=== PATIENT | female | born 1985 | race Two or more races ===

== ENCOUNTER 2021-11-28 14:51 | Outpatient (CLI) | payer BC, SELFPAY ==
--- NOTE | 2021-11-28 15:00 | CRLHL7_ITS ---
For Patients: As a result of the Cures Act, medical imaging exams and procedure reports are released immediately into your electronic medical record. You may view this report before your referring provider. If you have questions, please contact your health care provider. INDICATION: First trimester scan, establish dates. COMPARISON: None. TECHNIQUE: Real-time spence-scale imaging of the pelvis was performed. FINDINGS: Sonographic imaging demonstrates a single living intrauterine gestation. The embryo demonstrates a regular cardiac rate measuring 163 beats per minute. The embryo`s crown-rump length measurement of 1.4 cm corresponds to a gestational age of 7 weeks 5 days with a sonographic due date of 07/12/2022. There is a normal-appearing yolk sac. There are no gross abnormalities noted within the embryo at this early state of development. The gestational sac has a normal appearance. There is no evidence of a perigestational hemorrhage. The amount of fluid within the sac appears appropriate for gestational age. The cervix is closed. The myometrium appears normal. The ovaries are of normal size. Corpus luteal cyst right ovary. There are no suspicious fluid collections noted in the cul-de-sac. IMPRESSION: Normal first trimester OB ultrasound exam. Gestational age calculated at 7 weeks 5 days with a sonographic due date of 07/12/2022. Dictated by Donald Alatorre MD @ 11/28/2021 4:02:07 PM (Electronically Signed)
== END 2021-11-28 14:52 | disposition home or self-care (01) ==
PROVIDERS: Visit Provider Physician Assistant
DX: Z34.91 Encounter for supervision of normal pregnancy, unspecified, first trimester (principal); Z3A.01 Less than 8 weeks gestation of pregnancy
CPT/HCPCS: 76817

== ENCOUNTER 2022-07-09 16:51 | Inpatient (IN) | payer BC, SELFPAY ==
[2022-07-09 17:02] VITALS: PULSE 83; O2SAT 99
[2022-07-09 17:03] VITALS: BP 124/86; PULSE 97; TEMP 36.6
[2022-07-09 17:20] VITALS: BMI 33.3
[2022-07-09] MEDS: miSOPROStoL 25 MCG/0.25 TABLET PO ×3 (17:49→23:45)
[2022-07-09 18:46] LABS: SARS Antigen* Negative (Negative)
[2022-07-09 19:02] LABS: Basophils Percent Auto 0.4 % (0.0-3.0); Eosinophils Percent Auto 0.6 % (0.0-7.0); Hemoglobin* 11.7 gm/dL (12.0-16.0); Immature Granulocytes Pct Auto 0.2 %; Lymphocytes Percent Auto 21.9 % (20-44); Mean Corpuscular HGB Conc 33 gm/dL (32-36); Mean Corpuscular Hemoglobin 27 pg (26-34); Mean Corpuscular Volume 82 fL (80-100); Neutrophils Percent Auto 70.9 % (42.0-72.0); Platelet Count* 240 K/uL (140-440); RDW Coefficient of Variation % 14.4 % (11.5-15.5); Red Blood Count 4.41 m/uL (4.00-5.20); White Blood Count* 11.26 K/uL (4.50-11.00)
[2022-07-09 19:07] LABS: Slide Review Reflex No
--- NOTE | 2022-07-09 19:20 | PM.OBHPLI ---
OB - H&P: HPI Labor/Induction History of Present Illness Date Seen: 07/09/22 Chief Complaint: The patient is a 36 year old 2 para 1001 at 40 weeks gestation by LMP and confirmed with 7w US, who presents for IOL for AMA. has been uncomplicated other than maternal covid infection at 30 weeks. Symptoms were mild and she was started on ASA 81 mg at that time. Baby has been active. No contractions or LOF. No swelling, headaches, abdominal pain. Chief complaint: Maternity : 2 Para: 1 Indications for induction: other (AMA) History of Present Dating criteria: based on LMP care: good care Ultrasounds: normal 1st trimester US, normal mid trimester US and other (growth US at 36 weeks 2814g (79%)) complications comment: covid in . on 81 mg ASA. Medical complications: other (meralgia paresthetica ) Labs Blood type: A (+) positive Rubella: immune RPR/VDLR: nonreactive GBS status: negative HBsAG: negative Review of Systems Status of ROS: Reports: 6 or more systems reviewed and unremarkable except as noted in History and below Meds Home Medications and Allergies Home Medications Medication Instructions Recorded Confirmed Type No Known Home Medications 07/09/22 07/09/22 History Allergies Allergy/AdvReac Type Severity Reaction Status Date / Time No Known Drug Allergies Allergy Verified 07/09/22 17:04 OB - H&P: Exam Physical Exam: Vital signs: Temp Pulse BP Pulse Ox 97.9 F 97 124/86 99 07/09/22 17:03 07/09/22 17:03 07/09/22 17:03 07/09/22 17:02 Constitutional: Constitutional: no acute distress Routine HEENT Exam: Head: Present atraumatic and normal inspection Eye: Present EOMI and normal appearance ENT: Present mucous membranes moist Routine Neck Exam: Neck: Present full ROM Routine Respiratory Exam: Respiratory: Present CTA bilaterally Routine Cardiovascular Exam: Cardiovascular: RRR Comments: no murmur Detailed Labor and Delivery Exam: Dilation (cm): 0 Effacement (%): 0 Cervix position: posterior Consistency: firm Contraction frequency (min): 5 Contraction intensity: Mild Fetus (Single): Station: -3 Amniotic Membrane Status: intact Heart Rate Baseline: 125 Monitor Accelerations: Present Monitor Decelerations: None Stone Derrickman And Rigger Variability: Moderate (6-25) Routine Skin Exam: Present intact and normal turgor Routine Neurological Exam: Present alert, oriented X3 and CN II-XII intact Routine Psychiatric Exam: Present normal affect OB - Results Labs Labs: Short CBC 07/09/22 Range/Units 18:53 WBC 11.26 H (4.50-11.00) K/uL Hgb 11.7 L (12.0-16.0) gm/dL Hct 36.0 (33.0-51.0) % Plt Count 240 (140-440) K/uL OB - Problem Based A/P Additional Plan (1) Term : Status: Acute (2) AMA (advanced maternal age) multigravida 35+: Status: Acute Delivery/Labor/Induction Plan Plan: induction Induction method: per misoprostol protocol
[2022-07-10] MEDS: miSOPROStoL 25 MCG/0.25 TABLET PO ×2 (02:46→06:13)
[2022-07-10 07:14] VITALS: BP 140/87; PULSE 67; TEMP 36.6
--- NOTE | 2022-07-10 11:29 | P.OBPN_ITS ---
Subjective Date Seen: 07/10/22 Narrative: Britt is a 36 yo at 40+1 weeks here for IOL for AMA. She recieved 5 doses of PO cytotec since admission. Contractions have been stronger, but minimal cervical change. Objective Vital Signs: Last Vital Signs Temp 97.8 F 07/10/22 07:14 Pulse 67 07/10/22 07:14 BP 140/87 H 07/10/22 07:14 Pulse Ox 99 07/09/22 17:02 Pelvic Exam Dilation (cm): 1 Station: -3 Contractions Monitor mode: External Contraction Frequency: 3-4 Contraction pattern: Irregular Contraction intensity: Moderate Assessment Assessment: induction ongoing Station: -3 Status: Category l Heart Rate Baseline: 135 [facility] Variability: Moderate (6-25) Monitor Accelerations: Present Monitor Decelerations: None Plan Plan: Discussed options for ongoing induction with minimal cervical change, pitocin and AROM are not indicated. Given difficulty reaching cervix which is still quite posterior, recommend cervidil for cervical ripening and then reassessing at that point for AROM vs pitocin.
[2022-07-10] MEDS: DINOPROSTONE 10 MG VAGINAL INSERT VAGINAL (11:38)
[2022-07-10 11:43] VITALS: BP 148/82; PULSE 73
[2022-07-10 15:54] VITALS: BP 134/77; PULSE 83; TEMP 36.5
[2022-07-10] MEDS: hydrOXYzine pamoate 25 MG CAPSULE 100 MG PO ×2 (16:47→23:56)
[2022-07-10] MEDS: MORPHINE 10 MG/ML inj IM ×2 (16:47→23:56)
[2022-07-10] MEDS: ONDANSETRON ODT 4 MG TAB PO ×2 (18:05→23:40)
[2022-07-10 18:42] VITALS: BP 119/72; PULSE 83; TEMP 36.5
[2022-07-10 19:12] VITALS: BP 122/70; PULSE 79; RESP 16; TEMP 36.8
[2022-07-10 23:33] VITALS: BP 126/74; PULSE 75; RESP 18; TEMP 37
[2022-07-11] VITALS (12 sets, daily range): BP systolic 116–139; BP diastolic 66–89; PULSE 68–97; RESP 16–18; TEMP 36.6–36.9; O2SAT 98–100
--- NOTE | 2022-07-11 07:56 | P.OBPN_ITS ---
Subjective Date Seen: 07/11/22 Narrative: at 40+1 started IOL on 07/09/22 evening. Has had oral cytotec x5 followed by cervidil. Cervix remained unfavorable at midnight when the cervidil was removed, so she was allowed to rest overnight. She is comfortable now, not feeling contractions. Has been nauseated and vomiting since her dose of morphine. Is due for PO zofran and recommend she try breakfast. Objective Vital Signs: Last Vital Signs Temp 98.2 F 07/11/22 06:21 Pulse 71 07/11/22 06:21 Resp 18 07/11/22 06:21 BP 130/85 07/11/22 06:21 Pulse Ox 99 07/09/22 17:02 Pelvic Exam Dilation (cm): 2 Effacement (%): 40 Station: -3 Comments: medium, posterior, Henderson score 3 Contractions Monitor mode: External Contraction pattern: Irregular Contraction intensity: Mild Assessment Assessment: induction ongoing Station: -3 Status: Category l Heart Rate Baseline: 135 Installation And Repair Technician Variability: Moderate (6-25) Monitor Accelerations: Present Monitor Decelerations: None Plan Plan: Discussed options with patient including d/c to home to reinitiate induction later tonight or later this week vs vaginal cytotec with plan to hopefully place a cook catheter overnight. Patient would like to continue induction. Will plan cytotec PV.
[2022-07-11] MEDS: ONDANSETRON ODT 4 MG TAB PO (08:07)
[2022-07-11] MEDS: miSOPROStoL 25 MCG/0.25 TABLET VAGINAL ×4 (08:21→17:13)
[2022-07-11] MEDS: LACTATED RINGERS 1000 ML 1,000 ML 500 ML IV ×2 (09:46→23:34)
[2022-07-11] MEDS: LACTATED RINGERS 1000 ML 1,000 ML 125 ML IV (14:20)
[2022-07-11 15:58] LABS: Basophils Percent Auto 0.2 % (0.0-3.0); Eosinophils Percent Auto 0.1 % (0.0-7.0); Hematocrit 36.8 % (33.0-51.0); Hemoglobin* 11.8 gm/dL (12.0-16.0); Immature Granulocytes Pct Auto 0.2 %; Lymphocytes Percent Auto 11.1 % (20-44); Mean Corpuscular HGB Conc 32 gm/dL (32-36); Mean Corpuscular Hemoglobin 26 pg (26-34); Mean Corpuscular Volume 82 fL (80-100); Monocytes Percent Auto 5.8 % (0.0-11.0); Neutrophils Percent Auto 82.6 % (42.0-72.0); Platelet Count* 351 K/uL (140-440); RDW Coefficient of Variation % 15.3 % (11.5-15.5); Red Blood Count 4.48 m/uL (4.00-5.20); White Blood Count* 12.56 K/uL (4.50-11.00)
[2022-07-11 16:00] LABS: Slide Review Reflex No
[2022-07-11] MEDS: LACTATED RINGERS 1000 ML 1,000 ML 999 ML IV ×2 (19:11→20:15)
--- NOTE | 2022-07-11 19:52 | P.OBPN_ITS ---
Subjective Date Seen: 07/11/22 Narrative: Britt is a 36 yo at 40+2 weeks here for IOL for AMA. She has made minimal cervical change after 4 doses cytotec PV, however cervix is more mid position and cook catheter was able to be placed with use of nitrous oxide for analgesia. 60 mL was placed in both intrauterine and intravaginal balloons. Patient is feeling occasional mild contractions. No LOF. No swelling. Objective Vital Signs: Last Vital Signs Temp 98.3 F 07/11/22 18:35 Pulse 73 07/11/22 19:46 Resp 16 07/11/22 18:35 BP 139/89 07/11/22 19:46 Pulse Ox 100 07/11/22 18:46 Pelvic Exam Dilation (cm): 2 Effacement (%): 40 Station: -3 Contractions Monitor mode: External Contraction pattern: Irregular Contraction intensity: Mild Assessment Assessment: induction ongoing Station: -3 Status: Category l Heart Rate Baseline: 150 Hazardous Materials Driver Variability: Moderate (6-25) Monitor Accelerations: Present Monitor Decelerations: None Plan Plan: Cook catheter overnight. Low dose pitocin protocol in early AM. Plan for pitocin induction vs AROM in morning.
[2022-07-11] MEDS: hydrOXYzine pamoate 25 MG CAPSULE 100 MG PO (22:05)
[2022-07-11] MEDS: MORPHINE 10 MG/ML inj IM (22:06)
[2022-07-11] MEDS: ONDANSETRON 2 MG/ML inj 4 MG IV (22:10)
[2022-07-11] MEDS: LACTATED RINGERS 1000 ML 1,000 ML 1200 ML IV (22:40)
[2022-07-12] VITALS (71 sets, daily range): BP systolic 103–197; BP diastolic 51–94; PULSE 59–113; RESP 16–18; TEMP 36.6–37.6; O2SAT 87–99
[2022-07-12] MEDS: LACTATED RINGERS 1000 ML 1,000 ML 500 ML IV ×4 (01:29→06:56)
[2022-07-12] MEDS: OXYTOCIN 30 unit/500 ML in NS 30 UNIT/500 ML BAG IVPB (02:05)
[2022-07-12] MEDS: fentaNYL 100 MCG/2 ML inj IVP ×3 (05:44→07:14)
--- NOTE | 2022-07-12 07:32 | P.OBPN_ITS ---
Subjective Date Seen: 07/12/22 Narrative: Britt is a at 40+3 here for IOL for AMA. Last evening had a cook placed at around 1945. About an hour later, had bleeding with passage of an 85 g clot. She had no increased pain, FHTs reassuring and we continued observation with resolution of bleeding. Cook removed around 0600 and 10 minutes later patient had SROM of clear fluid. Her pain increased significantly at that time and fentanyl x3 doses was not sufficient to relieve pain. She is now getting an epidural. Objective Vital Signs: Last Vital Signs Temp 98.3 F 07/12/22 06:11 Pulse 94 07/12/22 07:31 Resp 16 07/12/22 06:11 BP 143/70 H 07/12/22 07:31 Pulse Ox 89 07/12/22 07:29 Pelvic Exam Dilation (cm): 2 Effacement (%): 40 Station: -3 Contractions Monitor mode: External Contraction Frequency: 2 minutes Contraction pattern: Irregular Contraction intensity: Mild Pitocin Rate (mU/min): 4 Assessment Assessment: active labor Station: -3 Amniotic Membrane Status: SROM Status: Category l Heart Rate Baseline: 140 Food Service Team Member Variability: Moderate (6-25) Monitor Accelerations: Present Monitor Decelerations: None Plan Plan: Continue pitocin per protocol Anticipate .
[2022-07-12] MEDS: LIDOCAINE 2% (PF) 5 ML VIAL EPIDURAL (07:35)
[2022-07-12] MEDS: ROPIVACAINE 0.2% 100 ml 100 ML 10 MG EPIDURAL (07:35)
--- NOTE | 2022-07-12 07:48 | PM.ANBPRC ---
[facility] Smoking Status: Never smoker Meds Home Medications and Allergies Home Medications Medication Instructions Recorded Confirmed Type No Known Home Medications 07/09/22 07/09/22 History Allergies Allergy/AdvReac Type Severity Reaction Status Date / Time No Known Drug Allergies Allergy Verified 07/09/22 17:04 Results Labs Labs: Laboratory Results - last 24 hr 07/11/22 09:40 WBC 12.56 H RBC 4.48 Hgb 11.8 L Hct 36.8 MCV 82 MCH 26 MCHC 32 RDW Coeff of [place] 15.3 Plt Count 351 Neut % (Auto) 82.6 H Lymph % (Auto) 11.1 L [place] % (Auto) 5.8 Eos % (Auto) 0.1 Baso % (Auto) 0.2 Neut # (Auto) 10.40 H Lymph # (Auto) 1.40 [place] # (Auto) 0.70 Eos # (Auto) 0.00 Baso # (Auto) 0.00 Vital Signs Vital Signs: Last Vital Signs Temp 98.3 F 07/12/22 06:11 Pulse 81 07/12/22 07:47 Resp 16 07/12/22 06:11 BP 115/65 07/12/22 07:47 Pulse Ox 99 07/12/22 07:42 Weight: 80.104 kg Height: 154.94 cm Anesthesia Procedures Epidural Insertion Patient Location: OB Reason for Block: primary anesthetic Patient Position: sitting Performed By: Arvind Ordaz Preanesthetic Checklist: IV checked, risks and benefits discussed, surgical consent, monitors and equipment checked, pre-op evaluation, timeout performed and anesthesia consent Prep: chlorhexidine gluconate Monitoring: blood pressure monitoring, air sampling and monitoring, continuous pulse oximetry and heart rate Approach: midline Vertebral Space: lumbar (1-5) Needle Type: Tuohy needle Injection Technique: continuous catheter (catheter) Needle gauge: 17 Needle Length (cm): 10 cm Needle Insertion Depth (cm): 5 Catheter Gauge: 19 Catheter Type: multi-orifice Catheter at skin depth (cm): 10 Test Dose Result: negative and lidocaine 1.5% with epinephrine 1 to 200,000
--- NOTE | 2022-07-12 07:49 | PM.ANBPRC ---
[facility] PFS Social History Smoking Status: Never smoker Meds Home Medications and Allergies Home Medications Medication Instructions Recorded Confirmed Type No Known Home Medications 07/09/22 07/09/22 History Allergies Allergy/AdvReac Type Severity Reaction Status Date / Time No Known Drug Allergies Allergy Verified 07/09/22 17:04 Results Labs Labs: Laboratory Results - last 24 hr 07/11/22 09:40 WBC 12.56 H RBC 4.48 Hgb 11.8 L Hct 36.8 MCV 82 MCH 26 MCHC 32 RDW Coeff of [place] 15.3 Plt Count 351 Neut % (Auto) 82.6 H Lymph % (Auto) 11.1 L [place] % (Auto) 5.8 Eos % (Auto) 0.1 Baso % (Auto) 0.2 Neut # (Auto) 10.40 H Lymph # (Auto) 1.40 [place] # (Auto) 0.70 Eos # (Auto) 0.00 Baso # (Auto) 0.00 Vital Signs Vital Signs: Last Vital Signs Temp 98.3 F 07/12/22 06:11 Pulse 81 07/12/22 07:47 Resp 16 07/12/22 06:11 BP 115/65 07/12/22 07:47 Pulse Ox 99 07/12/22 07:47 Weight: 80.104 kg Height: 154.94 cm Anesthesia Procedures Epidural Insertion Patient Location: OB Start Time: 07:15 Stop Time: 07:45 Start Date: 07/12/22 Stop Date: 07/12/22 Reason for Block: procedure for pain Patient Position: sitting Performed By: Arvind Ordaz Preanesthetic Checklist: IV checked, site marked, risks and benefits discussed, monitors and equipment checked, pre-op evaluation, timeout performed and anesthesia consent Prep: patient draped Monitoring: blood pressure monitoring, continuous pulse oximetry and heart rate Approach: midline Vertebral Space: lumbar (1-5) Epidural Technique: SUMIT saline Needle Type: Tuohy needle Injection Technique: continuous catheter Needle gauge: 17 Needle Insertion Depth (cm): 5 Catheter Gauge: 19 Catheter Type: multi-orifice Catheter at skin depth (cm): 10
[2022-07-12] MEDS: PHENYLEPHRINE 100 MCG/ML SYRINGE IVP (08:58)
--- NOTE | 2022-07-12 12:23 | P.OBPN_ITS ---
Subjective Date Seen: 07/12/22 Narrative: Britt is a at40+3 who was admited for IOL for AMA. This morning had SROM and went in to active labor around 0615 and was complete around 1000. She has been pushing for 2.5 hours, but not effectively and not feeling pressure or urge to push despite turning down epidural rate. She is exhausted and is requesting rest. Objective Vital Signs: Last Vital Signs Temp 98.4 F 07/12/22 12:11 Pulse 73 07/12/22 12:20 Resp 16 07/12/22 06:11 BP 109/54 L 07/12/22 12:20 Pulse Ox 98 07/12/22 08:27 Pelvic Exam Dilation (cm): 10 Effacement (%): 100 Station: 0 Contractions Monitor mode: External Contraction pattern: Irregular Contraction intensity: Mild Pitocin Rate (mU/min): 4 Assessment Assessment: active labor Station: -3 Amniotic Membrane Status: SROM Status: Category l Heart Rate Baseline: 155 Real Estate Leasing Manager Variability: Minimal (3-5) Monitor Accelerations: Present Monitor Decelerations: Variable Plan Plan: Epidural rate turned down again in hopes that mom has more urge to push and more effective pushing. If no progress made, will need to consult Seed Core Operator to discuss .
[2022-07-12] MEDS: LACTATED RINGERS 1000 ML 1,000 ML 125 ML IV (13:44)
[2022-07-12] MEDS: CEFAZOLIN 2 GM INJ IVP (15:03)
--- NOTE | 2022-07-12 15:28 | W.PM.VAGDEL1 ---
Procedure Procedure Done: Global Events: AMA and Covid Infection in Intrapartal Events: Labor Induction and Prolonged 2nd Stage >2.5 Hrs Delivery augmentation: pitocin Delivery monitor: external FHT Route of delivery: Indication for instrumentation: maternal exhaustion Laceration description: Perineal - 3rd Degree Anesthesia type: Epidural Disposition: floor Narrative: The patient is a 36 year-old admitted on 07/09/2022 at 40 Weeks, 0 Days gestation for IOL for AMA.? Cervical exam on admission was 0 cm/0 % effaced/-4 station with membranes intact in vertex presentation.? Contractions were irregular adn not felt by mother.? heart rate demonstrated a category 1 tracing.?Patent initially had 5 doses PO cytotec followed by 12 hours cervidil with minimal cervical change. After an 8 hour break, she was given 4 doses cytotec PV and then underwent cook catheter placement at 1937 on 07/11/2022. This was removed at 0600 on 07/12/2022 and SROM occurred at 0617 with clear fluid. ? Labor Analgesia:? epidural ? Pitocin:? yes ? Labor onset:? 0750 ? Complete:? 0924 ? Pushing:? 0924 ? heart tones during second stage were category 2. ? At 1441 a viable female infant delivered in vertex OA presentation over intact perineum via vacuum assisted vaginal delivery due to maternal exhaustion. Infant then had a 30 second shoulder dystocia, attempt was made to deliver the posterior shoulder, but infant then rotated and delivered with a body cord.? was placed on maternal abdomen.? Cord was clamped and cut after a 30-60 second delay.? Nose and mouth were bulb suctioned.? weight pending.? 2 at 1 minute and 9 at 5 minutes.? Shoulder dystocia: yes, 30 seconds.? Nuchal cord: no, body cord ? Placenta delivered spontaneously and complete at 1443 with a 3 vessel cord. ? Mother and infant were stable after delivery. ? Lacerations:? 3c, repaired by Dr. Cervantes, see her dictation for details. ? Blood loss: 125 mL. Blood loss measurement type: QBL ? Sponge and needles counts are correct. [place] Gender: Female presentation: vertex Placental Delivery Description: Spontaneous Cord Description: 3 Vessels and Around Body x1
[2022-07-12] MEDS: ACETAMINOPHEN 500 MG TABLET 1000 MG PO ×2 (15:49→21:50)
[2022-07-12] MEDS: OXYCODONE 5 MG TABLET PO (16:23)
--- NOTE | 2022-07-12 17:10 | P.OBCN_ITS ---
OB - CN: HPI Date of Consult Date Seen: 07/12/22 Patient: Tasha Patient Consult date: 07/12/22 Requesting Physician: Farzaneh Sr MD Primary Care Provider: Farzaneh Sr MD Consult Narrative Reason for consult: other (Perineal laceration repair) Narrative: The patient is a 36 year old G2 P 2001 at 40 3/7 weeks gestation that was admitted to the Center on 07/09/22 for IOL. Patient went on to deliver after a vacuum assisted vaginal delivery due to maternal exhaustion and pr otracted second stage of labor. I was called in to evaluate and repair a possible 4th degree perineal laceration. History of Present complications comment: covid in . on 81 mg ASA. History History 2 Elective abortions Para 1 Spontaneous abortions Hx # Term Pregnancies Ectopic pregnancies Hx # Pregnancies Multiple births Number of Living Children 1 Labs Blood type: A (+) positive Rubella: immune RPR/VDLR: nonreactive GBS status: negative HBsAG: negative OB Labs: Lab Assessment Start: 07/09/22 16:59 Freq: Status: Complete Protocol: PC.OBGBS Activity Type Activity Date Activity User E-sign Co-sign Detail Recorded Client Recorded Date Recorded By Document 07/09/22 16:59 [facility] [id number] 07/09/22 16:59 [facility] 07/09/22 16:59 Lab Assessment GBS Negative Lab Assessment Start: 07/09/22 17:04 Freq: ONCE Status: Complete Protocol: PC.OBGBS Activity Type Activity Date Activity User E-sign Co-sign Detail Recorded Client Recorded Date Recorded By Document 07/09/22 17[facility]11 [id number] 07/09/22 17:11 [facility] 07/09/22 17:11 Lab Assessment GBS negative Previous [place] with Invasive GBS No Does Patient Meet Criteria No No Treatment Needed [place] Maternal Blood Type A Maternal RH Factor Positive Evaluate Maternal Rubella Immune Status Immune Hepatitis B Surface Antigen Negative Maternal HIV Status Negative Maternal Syphillis (RPR) Status Negative Are Labs Available [facility] Social History Smoking Status: Never smoker Meds Home Medications and Allergies Home Medications Medication Instructions Recorded Confirmed Type No Known Home Medications 07/09/22 07/09/22 History Allergies Allergy/AdvReac Type Severity Reaction Status Date / Time No Known Drug Allergies Allergy Verified 07/09/22 17:04 OB - H&P: Exam Physical Exam: Vital signs: Temp Pulse Resp BP Pulse Ox 99.6 F 70 18 135/65 98 07/12/22 13:51 07/12/22 17:05 07/12/22 13:51 07/12/22 17:05 07/12/22 08:27 Narrative: Upon arrival placenta had been delivered and uterus was well contracted, minimal bleeding noticed from laceration. Upon review there is separation down to the rectal mucosa from external hemorrhoids, this is midline, rectal mucosa separation is not deep, 1-1.5cm in depth. Significant swelling of the bilateral labia minora and labia majora. Rectal exam really showed an intact mucosa vaginally, but disruption of rectal mucosa associated with external hemorrhoids. The sphincter muscle complex was entirely . The repair was performed in the following manner: Epidural was covering well, but we also infiltrated about 10mL of 1% plain lidocaine at the start of procedure. The rectal mucosa associated with external hemorrhoids was closed with Vicryl 3-0 in a continuos manner. Rectal exam performed again at this time and rectal mucosa (below vaginal canal) felt intact w/o defect. The hemorrhoid mucosa was entirely closed. The internal sphincter muscle was easily identified on the right side, on the left side it was still associated with the external sphincter muscle, with a Allis clamp a big grasp of the internal and external sphincter muscles was performed bilaterally. Utilizing Vicryl 3-0, 3 interrupted stitches(deep in a horizontal plane, one superior, midline, lower in reference to the Allis clamp) were made and then closed midline in an end to end manner. Another layer was then performed to close the perineal muscles also utilizing Vicryl 3-0 in an interrupted manner. The vaginal mucosa was then approximated as in the repair of a second degree/episiotomy laceration in a continuos interlocking fashion. The skin was approximated with the same suture. A repeat rectal exam was performed at the end of procedure, again, rectal mucosa found continuos w/o defect. Patient was also able to contract rectal sphincter muscle with appropriate strength. Procedure ended. She had received 2g of Ancef at the start of laceration repair. OB - CN: A/P Assessment and Plan (1) Term : Status: Acute (2) AMA (advanced maternal age) multigravida 35+: Status: Acute Plan 4th degree perineal laceration, repaired. Patient tolerated procedure well.
[2022-07-12] MEDS: IBUPROFEN 600 MG TABLET PO (17:30)
[2022-07-13] VITALS (9 sets, daily range): BP systolic 105–136; BP diastolic 70–89; PULSE 69–99; RESP 14–20; TEMP 36.4–36.6; O2SAT 89–100
[2022-07-13] MEDS: IBUPROFEN 600 MG TABLET PO ×2 (01:01→08:12)
[2022-07-13] MEDS: ACETAMINOPHEN 500 MG TABLET 1000 MG PO ×2 (04:17→13:32)
[2022-07-13 07:10] LABS: Hemoglobin* 7.7 gm/dL (12.0-16.0)
--- NOTE | 2022-07-13 08:05 | P.OBPN_ITS ---
OB - PN:Subj Subjective Time Seen by Provider: 08:05 Date Seen: 07/13/22 Interval history: pt s/p vacuum assisted complicated by shoulder dystocia and 4th degree tear yesterday afternoon. pt reports taking ibuprofen and tylenol for pain. she does not want the oxycodone and is not using. Up to void multiple times overnight she reports otherwise not getting out of bed yet except to void. Lochia decreasing she reports. No lightheaded or dizziness. feels tired. bottlefeeding. She is eager to go home today. OB - PN: Obj Exam Physical Exam: Vital signs: Temp Pulse Resp BP Pulse Ox O2 Del Method 97.7 F 69 20 105/89 99 Room Air 07/13/22 07:57 07/13/22 07:57 07/13/22 07:57 07/13/22 07:57 07/13/22 07:57 07/13/22 07:57 Constitutional: Constitutional: no acute distress Routine HEENT Exam: Head: Present normal inspection and normocephalic Eye: Present normal appearance ENT: Present mucous membranes moist Routine Abdominal Exam: Fundus: Present firm (at umbilicus) OB - PN: Obj Data Labs Labs: Laboratory Results - last 24 hr 07/13/22 06:50 Hgb 7.7 L* OB - PN: A/P Vaginal Delivery Assessment and Plan (1) Term : Status: Acute (2) AMA (advanced maternal age) multigravida 35+: Status: Acute (3) Fourth degree perineal laceration during delivery, delivered: Status: Acute (4) anemia: Status: Acute Plan Comments: 1. postpatum anemia: Hgb 7.7, asymptomatic except fatigue. discussed iron infusion today with pt with Faraheme x 1 today to help increase iron stores/anemia faster and avoid side effect of constipation with oral iron and 4th degree tear. pt in agreement. Iron infusion discussed with pharmacy and nursing as well. 2. discussed 4th degree tear. she will try and get up more during day today and see how feels. she is on colace bid. Will need 2wk pelvic exam at 2wk followup appointment. T/c PT for pelvic floor therapy after 6wks. 3. pt eager to go home--has been here since Sunday for induction. She is experienced, this is second baby. Will see how patient and baby do throughout t he day and if doing well, likely d/c after 24 hours. discussed with pt. If concerns, will rec stay.
[2022-07-13] MEDS: DOCUSATE SODIUM 100 MG CAPSULE PO (08:13)
[2022-07-13] MEDS: ferumoxytoL 510 MG in 0.9 % SODIUM CHLORIDE 250 ml 250 ML 534 MG IVPB (09:48)
--- NOTE | 2022-07-13 17:26 | PM.OBDSVD1 ---
DS: Providers Provider Time Seen by Provider: 08:05 Date Seen: 07/13/22 Date of admission: 07/09/22 16:51 Primary care physician: Farzaneh rS MD Admitting Clinician: Farzaneh Sr MD Consults: Dr Tory Cervantes, OB surgeon Attending Physician on discharge: Farzaneh Sr MD Date of Discharge: 07/13/22 DS: Diagnosis Discharge Diagnosis (1) Term : Status: Acute (2) AMA (advanced maternal age) multigravida 35+: Status: Acute (3) Fourth degree perineal laceration during delivery, delivered: Status: Acute Problem details: Repaired by OB surgeon. she recommended pelvic exam at 2 week followup appointment with Dr Sr. Consider pelvic floor PT after 6wks (4) anemia: Status: Acute Problem details: received Feraheme infusion 07/13/22 due to hgb 7.7 . Exam Const: Vital Signs, click to edit/add: Vital Signs - 24 hr 07/12/22 20:41 07/13/22 01:02 07/13/22 04:18 Temperature 98.3 F 97.6 F 97.8 F Pulse Rate [Pulse Oximeter] 67 69 69 Respiratory Rate 18 16 16 Blood Pressure [Ri ght Arm] 114/72 136/78 121/70 Pulse Oximetry 98 100 98 Oxygen Delivery Me thod Room Air Room Air Room Air 07/13/22 07:57 07/13/22 08:12 07/13/22 09:55 Temperature 97.7 F 97.7 F Pulse Rate [Pulse Oximeter] 69 99 Respiratory Rate 20 18 Blood Pressure [Ri ght Arm] 105/89 111/72 Pulse Oximetry 99 99 Oxygen Delivery Me thod Room Air Room Air 07/13/22 10:46 07/13/22 10:17 07/13/22 12:20 Temperature Pulse Rate [Pulse Oximeter] 99 69 80 Respiratory Rate 16 Blood Pressure [Ri ght Arm] 121/76 135/85 121/73 Pulse Oximetry 89 98 Oxygen Delivery Me thod Room Air 07/13/22 16:40 Temperature 97.5 F L Pulse Rate [Pulse Oximeter] 69 Respiratory Rate 14 Blood Pressure [Ri ght Arm] 132/82 Pulse Oximetry 99 Oxygen Delivery Me thod Room Air Common normals: no apparent distress and healthy appearing : Uterus: U/U (firm) OB - DS: Summary Hospital Course Hospital Course: The patient is a 36 year old G 2 P 1 at 40 weeks gestation that was admitted to the Center on 07/09/22 for induction due to AMA. She had an complicated vacuum assisted vaginal delivery with 4th degree tear. She delivered a viable female infant. She is bottle feeding. the patients pain was controlled with ibuprofen and tylenol. She was anemic at 7.7 with only symptom fatigue. She given iron infusion on 07/13/22. She is eager to go home and requested discharge today. She is ambulating, voiding and tolerating orals. Peripartum Data Infant delivery method: Vacuum Laceration description: Perineal - 4th Degree Episiotomy description: None Gender: Female Infant Discharge Plan: Home Status at Discharge Functional status at discharge: independent ambulation Overall status at discharge: patient is progressing back to baseline Time Spent with Patient Time attestation: Total time spent providing and/or coordinating discharge services: Time spent: Less than 30 minutes Discharge Plan Discharge Disposition: Home, Self-Care Date of Admission: 07/09/22 16:51 Primary Care Provider: Farzaneh Sr Condition: Stable Anticipated Discharge Date/Time: 07/13/22 17:34 Discharge Medications: New acetaminophen 500 mg Tablet 1,000 mg PO Q6H PRNQty: 30 0RF docusate sodium 100 mg Capsule 100 mg PO BID Qty: 60 0RF ibuprofen 600 mg Tablet 600 mg PO Q6H PRNQty: 40 0RF No Action No Known Home Medications Discharge Orders: Discharge Order (Routine); Ordered 07/13/22 Ordered By: Lalita Moya Patient Education: OB Over the Counter Medication Information, OB Vaginal/Bottle Feeding Activity Level: Activity as Tolerated Activity Detail: No tampons or intercourse x 6 weeks Discharge Diet: Regular Diet Detail: push fluids and increase fiber to help prevent constipation Follow Up Appointments: Farzaneh Sr MD [Primary Care Provider] - (July [address] Sr at 11:45am) Forms: Navigating Cancer Info Instructions
== END 2022-07-13 18:15 | disposition home or self-care (01) | DRG 560 ==
PROVIDERS: Admitting Provider Family Medicine; PCP Family Medicine; Visit Provider Family Medicine
DX: O75.81 Maternal exhaustion complicating labor and delivery (principal); O90.81 Anemia of the puerperium; D62 Acute posthemorrhagic anemia; O66.0 Obstructed labor due to shoulder dystocia; O87.2 Hemorrhoids in the puerperium; O70.3 Fourth degree perineal laceration during delivery; Z3A.40 40 weeks gestation of pregnancy; Z37.0 Single live birth
CPT/HCPCS: 01967; 36415; 59200; 85018; 85025; 86850; 86900; 86901; 87426; 87635; A9270; C1726; J0690; J2270; J2370; J2405; J2795; J3010; J7050; J7120; Q0138

== ENCOUNTER 2023-11-21 09:20 | Outpatient (CLI) | payer BC, SELFPAY | END 2023-11-21 09:21 | disposition home or self-care (01) | LOC: NFLDREF 09:22 | PROVIDERS: PCP Family Medicine; Visit Provider Obstetrics & Gynecology | DX: Z01.419 Encounter for gynecological examination (general) (routine) without abnormal findings (principal); E03.9 Hypothyroidism, unspecified; N93.9 Abnormal uterine and vaginal bleeding, unspecified; R63.5 Abnormal weight gain | CPT/HCPCS: 84443; 87086 ==

== ENCOUNTER 2024-02-07 16:00 | Outpatient (RCR) | payer BC, SELFPAY | END 2024-05-28 13:51 | disposition home or self-care (01) | PROVIDERS: PCP Family Medicine; Visit Provider Obstetrics & Gynecology | DX: N39.3 Stress incontinence (female) (male) (principal); R15.9 Full incontinence of feces; R15.2 Fecal urgency; Z51.89 Encounter for other specified aftercare | CPT/HCPCS: 97112; 97140; 97162; 97530; 97535 ==

== ENCOUNTER 2025-02-13 08:54 | Outpatient (CLI) | payer BC, SELFPAY | END 2025-02-13 08:55 | disposition home or self-care (01) | PROVIDERS: PCP Family Medicine; Visit Provider Physician Assistant | DX: N92.6 Irregular menstruation, unspecified (principal); Z13.9 Encounter for screening, unspecified | CPT/HCPCS: 80061; 82947; 84146; 84443 ==